=== PATIENT | female | born 1950 | race African-American/Black ===

== ENCOUNTER 2018-09-28 17:00 | Inpatient (IN) | payer BC ==
[~2018-09-28] VITALS: Ht 162.6 cm; Wt 76.2 kg
--- NOTE | 2018-09-28 17:12 | NUR ---
BIB DAUGHTER. AAOX4. NAD, BREATHING EVEN AND UNLABORED.
--- NOTE | 2018-09-28 17:15 | NUR ---
IV LINE OBTAINED ON R AC 18G. BLOOD DRAWN AND GIVEN TO NEEDLE SETTER AT BEDSIDE
--- NOTE | 2018-09-28 17:18 | NUR ---
CODE STROKE ACTIVATED
--- NOTE | 2018-09-28 17:19 | NUR ---
BEING WHEELD TO CT ON [facility]
[2018-09-28] MEDS ORDERED: IV NS 0.9% 250 ML IV ONE (17:21)
[2018-09-28] MEDS ORDERED: IOHEXOL-350 100 ML VIAL IV ONE (17:21)
[2018-09-28] MEDS ORDERED: CT SWABBABLE VALVE TRANS SET 1 EA INFUS.SET MC ONE (17:21)
[2018-09-28 17:26] LABS: BASOPHILS # (AUTO) 0.1 /CMM (0.0-0.2); EOSINOPHILS % (AUTO) 2.4 % (0.0-6.0); HEMATOCRIT 40 % (33-45); HEMOGLOBIN 13.6 g/dL (11.5-14.8); LYMPHOCYTES # (AUTO) 2.7 /CMM (0.8-4.8); LYMPHOCYTES % (AUTO) 35.1 % (20.0-44.0); MEAN CORPUSCULAR HGB CONC 34 g/dl (31.0-36.0); MEAN CORPUSCULAR VOLUME 80 fL (82-100); MONOCYTES # (AUTO) 0.8 /CMM (0.1-1.30); MONOCYTES % (AUTO) 10.5 % (2.0-12.0); NEUTROPHILS # (AUTO) 3.9 /CMM (1.8-8.9); PLATELET COUNT (AUTO) 160 /CMM (150-450); RED BLOOD CELL COUNT(AUTO) 4.98 MIL/uL (4.0-5.2); WHITE BLOOD COUNT (AUTO) 7.7 K/uL (4.3-11.0)
[2018-09-28 17:33] LABS: CALCIUM, SERUM 9.4 mg/dL (8.5-10.1); CARBON DIOXIDE 31 mmol/L (21-32); CHLORIDE 103 mmol/L (98-107); CREATININE 1.2 mg/dL (0.6-1.3); GLUCOSE 86 mg/dL (74-106); POTASSIUM 3.1 mmol/L (3.5-5.1); SODIUM SERUM 140 mmol/L (136-145); UREA NITROGEN, BLOOD 23 mg/dL (7-18)
--- NOTE | 2018-09-28 17:40 | NUR ---
PT BACK TO ROOM. PT ON TELEHEALTH CONFERENCE W/ NEUROLOGY
[2018-09-28] MEDS ORDERED: CLOPIDOGREL BISULFATE 75 MG TABLET ONE (18:18)
[2018-09-28 18:19] LABS: CHOLESTEROL 159 mg/dL (<200); HDL CHOLESTEROL 41 mg/dL (40-60); LDL 91 mg/dL (0-99); TRIGLYCERIDES 138 mg/dL (30-150)
[2018-09-28] MEDS ORDERED: LOVA10TA PO (18:23)
[2018-09-28] MEDS ORDERED: POTA8TAB8 PO (18:23)
[2018-09-28] MEDS ORDERED: CARV25TA2 PO (18:23)
[2018-09-28] MEDS ORDERED: BLOO-668 IN (18:23)
[2018-09-28] MEDS ORDERED: LOSA1TAB39 PO (18:23)
[2018-09-28] MEDS ORDERED: FURO40TA5 PO (18:23)
[2018-09-28] MEDS ORDERED: AMLO5TAB9 PO (18:23)
[2018-09-28] MEDS ORDERED: INSU100V7 SQ ×2 (18:23)
[2018-09-28] MEDS ORDERED: CLON0.1T PO (18:23)
[2018-09-28] MEDS ORDERED: PIPERACILLIN /TAZOBACTAM 3.375 G in IV D5W 50 ML IV ONE (18:30)
[2018-09-28] MEDS ORDERED: CLOPIDOGREL BISULFATE 75 MG TABLET PO ONE (18:30)
--- NOTE | 2018-09-28 18:39 | NUR ---
SWALOW EVAL PASSED. FLUIDS TOLERATED WELL. WELL PO MED. MADE AWARE
[2018-09-28] MEDS ORDERED: TEMAZEPAM 15 MG CAPSULE PO PRN (19:00)
[2018-09-28] MEDS ORDERED: CLONIDINE HCL 0.1 MG TABLET PO PRN ×2 (19:00→20:15)
[2018-09-28] MEDS ORDERED: POTASSIUM CHLORIDE 20 MEQ TAB.PRT.SR PO ONE ×2 (19:00→21:00)
[2018-09-28] MEDS ORDERED: ACETAMINOPHEN 325 MG TABLET PO PRN ×2 (19:00→20:15)
[2018-09-28] MEDS ORDERED: INSULIN REGULAR, HUMAN 100 UNIT/ML 3 ML VIAL SQ PRN (19:00)
[2018-09-28] MEDS ORDERED: DEXTROSE 50%-WATER 50 ML DISP.SYRIN IV PRN ×2 (19:00→20:15)
--- NOTE | 2018-09-28 19:11 | NUR ---
RECIEVED REPORT FROM OFFGOING SHIFT RIVER HERNANDEZ. PT STABLE CONDITION. NAD.
--- NOTE | 2018-09-28 19:14 | NUR ---
PT ENDORSED TO [facility] DUNN FOR VIK
[2018-09-28 19:22] LABS: C-REACTIVE PROTEIN 0.2 mg/dL (0.0-0.9); THYROID STIMULATING HORMONE 2.916 uIU/mL (0.358-3.74)
--- NOTE | 2018-09-28 19:50 | NUR ---
REPORT GIVEN TO VIANEY SINGH
[2018-09-28 20:00] VITALS: BP 167/67
--- NOTE | 2018-09-28 20:00 | NUR ---
RN VIANEY NOTE RECEIVED REPORT, ER GIVEN BY MONA HOLMAN, PT ADMITTED FOR CVA/ OSTEOMYELITIS, C/O LT CHEEK NUMBNESS, ABSCESS NOTED ON LT BACK WISDOM TEETH PER PT BY ER , AOX4 ON R/A DENIES ANY PAIN, SKIN INTACT, RAC#20G WELL SECURED AND PATENT, AMBULATORY, NO DEFICITS NOTE FOR BOTH UPPER EXT' AND BILAT' LE, ADMITTING ORDERS ENTERED BY YASMEEN, KEVIN DIET ACTIVE, NURSING SWALLOW EVAL DONE PASSED, YASMEEN AWARE, OK TO RESUME DIET, WILL CONT TO MONITOR PT FOR S/SX. Addendum: 09/28/18 at 2257 by ALEXSANDER AVALOS RN ADMITTING NOTE.
--- NOTE | 2018-09-28 20:05 | NUR ---
PT TRANSPORTED TO [facility] BED 106 WITH STABLE CONDITION, NAD, VIA ACLS PROTOCOL.
[2018-09-28] MEDS ORDERED: PIPERACILLIN /TAZOBACTAM 3.375 G in IV D5W 50 ML IV SCH ×4 (21:00)
[2018-09-28] MEDS ORDERED: BLOOD SUGAR DIAGNOSTIC 1 EACH STRIP IN SCH ×3 (22:00)
[2018-09-28] MEDS ORDERED: ATORVASTATIN 10 MG TABLET PO SCH (22:00)
[2018-09-28] MEDS: BLOOD SUGAR DIAGNOSTIC 1 EACH STRIP IN SCH (22:11)
[2018-09-28] MEDS: ATORVASTATIN 10 MG TABLET PO SCH (22:11)
[2018-09-29] VITALS: BP_SYST 135; BP_SYST 162; BP_DIAS 62; BP_DIAS 69
[2018-09-29] MEDS ORDERED: BLOOD SUGAR DIAGNOSTIC 1 EACH STRIP IN SCH ×2
[2018-09-29] MEDS: PIPERACILLIN /TAZOBACTAM 3.375 G in IV D5W 100 ML IV SCH ×4 (00:04→23:38)
[2018-09-29] MEDS: TEMAZEPAM 15 MG CAPSULE PO PRN (00:09)
[2018-09-29 04:00] VITALS: BP 131/63
--- NOTE | 2018-09-29 06:20 | NUR ---
RN VIANEY CLOSING NOTE ENDORSED TP AOX4, ON R/A, BLE AND BLE ASSESSED FOR DEFICITS, (-), NO FACIAL DROOP OR WEAKNESS NOTE, SPEECH CLEAR, SWALLOW EVAL NURSING ASSESMENT COMPLETED. WILL ENDORSE TO AM RN TO MONITOR FOR S/SX OF STROKE.
--- NOTE | 2018-09-29 07:15 | NUR ---
RN OPENING NOTES PATIENT IN BED AWAKE AND ALERT. NO COMPLAINS OF ANY PAIN NOR DISTRESS. ALERT AND ORIENTED X4. ON TELE MONITOR, SR. HAS A RIGHT AC #18 SALINE LOCKED. CVA PROTOCOL WAS DONE, ALL NEGATIVE. HAS A NEURO CONSULT PENDING. ON ROOM AIR, NO SOB NOTED. BED LOCKED AND IN LOWEST POSITION. CALL LIGHT WITHIN REACH. WILL CONTINUE TO MONITOR CLOSELY
[2018-09-29] MEDS: PANTOPRAZOLE 40 MG TABLET.DR PO SCH (07:30)
[2018-09-29] MEDS ORDERED: PANTOPRAZOLE 40 MG TABLET.DR PO SCH (07:30)
[2018-09-29] MEDS: BLOOD SUGAR DIAGNOSTIC 1 EACH STRIP IN SCH ×4 (07:38→22:05)
[2018-09-29 08:00] VITALS: BP 139/68
[2018-09-29] MEDS: FUROSEMIDE 40 MG TABLET PO SCH (08:06)
[2018-09-29] MEDS: POTASSIUM CHLORIDE 10 MEQ TABLET.SA PO SCH (08:06)
[2018-09-29] MEDS: CLOPIDOGREL BISULFATE 75 MG TABLET PO SCH (08:06)
[2018-09-29] MEDS: AMLODIPINE BESYLATE 5 MG TABLET PO SCH (08:06)
[2018-09-29] MEDS: CARVEDILOL 12.5 MG TABLET PO SCH ×2 (08:07→17:48)
[2018-09-29 09:00] VITALS: BP 139/68
[2018-09-29] MEDS ORDERED: CARVEDILOL 6.25 MG TABLET PO SCH (09:00)
[2018-09-29] MEDS ORDERED: AMLODIPINE BESYLATE 5 MG TABLET PO SCH (09:00)
[2018-09-29] MEDS ORDERED: CLOPIDOGREL BISULFATE 75 MG TABLET PO SCH (09:00)
[2018-09-29] MEDS ORDERED: LOSARTAN/HCTZ 50-12.5MG/ 1 EA TABLET PO SCH (09:00)
[2018-09-29] MEDS ORDERED: FUROSEMIDE 40 MG TABLET PO SCH (09:00)
[2018-09-29] MEDS ORDERED: POTASSIUM CHLORIDE 10 MEQ TABLET.SA PO SCH (09:00)
[2018-09-29] MEDS ORDERED: ASPIRIN EC 325 MG TABLET.DR PO SCH (09:00)
[2018-09-29] MEDS: LOSARTAN/HCTZ 50-12.5MG/ 1 EA TABLET PO SCH (09:21)
--- NOTE | 2018-09-29 11:30 | NUR ---
RN NOTES YASMEEN BEDOLLA DNP AT BEDSIDE. ASSESSED PATIENT AND TALKED TO FAMILY AT BEDSIDE.
[2018-09-29] MEDS: INSULIN REGULAR, HUMAN 100 UNIT/ML 3 ML VIAL SQ PRN ×3 (11:56→22:23)
[2018-09-29 12:33] LABS: BASOPHILS % (AUTO) 0.7 % (0.0-2.0); EOSINOPHILS % (AUTO) 2.3 % (0.0-6.0); HEMATOCRIT 38 % (33-45); HEMOGLOBIN 13.1 g/dL (11.5-14.8); LYMPHOCYTES # (AUTO) 1.8 /CMM (0.8-4.8); LYMPHOCYTES % (AUTO) 29.4 % (20.0-44.0); MEAN CORPUSCULAR HGB CONC 34 g/dl (31.0-36.0); MEAN CORPUSCULAR VOLUME 79 fL (82-100); MONOCYTES # (AUTO) 0.6 /CMM (0.1-1.30); MONOCYTES % (AUTO) 10.2 % (2.0-12.0); NEUTROPHILS # (AUTO) 3.4 /CMM (1.8-8.9); NEUTROPHILS % (AUTO) 57.4 % (43.0-81.0); PLATELET COUNT (AUTO) 149 /CMM (150-450); RED BLOOD CELL COUNT(AUTO) 4.83 MIL/uL (4.0-5.2)
--- NOTE | 2018-09-29 12:45 | NUR ---
RECEIVED REPORT FROM NEHA HOLMAN FOR VIK. A/OX4. NO ACUTE DISTRESS OR SOB NOTED. REPORTS 08/01 TOOTHACHE AND LEFT FACIAL WEAKNESS. SPEECH CLEAR, SMILE EVEN, OTHER SPATIAL SCIENTIST STRENGTH EQUAL ON BOTH SIDES. IV SITE R AC 18G C/D/I, SALINE LOCKED. BED LOCKED, LOW, SIDE RAILS UPX2, PATIENT ABLE TO MAKE NEEDS KNOWN. CALL LIGHT WITHIN REACH. WILL CONTINUE TO MONITOR
[2018-09-29] MEDS: methylPREDNISolone SOD SUCC 40 MG/ML VIAL IV SCH ×2 (13:17→17:48)
[2018-09-29 13:57] LABS: PHOSPHORUS 4.1 mg/dL (2.5-4.9)
[2018-09-29 16:00] VITALS: BP 118/67
--- NOTE | 2018-09-29 18:00 | NUR ---
MS RN CLOSING NO SIGNIFICANT CHANGES THROUGHOUT SHIFT. PATIENT STABLE. NO S/S STROKE. REPORT GIVEN TO NOC RN FOR VIK.
--- NOTE | 2018-09-29 19:36 | NUR ---
RN OPENING NOTES RECEIVED PATIENT AWAKE, RESTING COMFORTABLY IN BED. PATIENT IS A/O X4. NO SIGNS OF RESPIRATORY DISTRESS. DENIES SHORTNESS OF BREATH. PATIENT DENIES PAIN OR DISCOMFORT AT THIS TIME. IV SITE: RAC #18 IS SALINE LOCKED INTACT AND PATENT, WITH NO REDNESS.SAFETY PRECAUTIONS IMPLEMENTED. CALL LIGHT WITHIN REACH. WILL CONTINUE TO MONITOR PATIENT THROUGHOUT THE SHIFT.
[2018-09-29 20:00] VITALS: BP 135/62
[2018-09-29] MEDS: ATORVASTATIN 10 MG TABLET PO SCH (21:43)
--- NOTE | 2018-09-29 22:07 | NUR ---
RN NOTES CURRENT BLOOD SUGAR IS 499. THIS WAS THE SECOND TEST PERFORMED AFTER THE FIRST: WHICH WAS 500+. PATIENT STATED SHE ATE 2 CUPS OF JELLO AND AN ORANGE AT 2130. STAT LAB DRAW WAS ORDERED. WILL CONTINUE TO MONITOR PATIENT.
[2018-09-29] MEDS: INSULIN GLARGINE, 100 UNIT/ML CARTRIDGE SQ SCH (22:22)
[2018-09-29] MEDS ORDERED: *INSULIN REGULAR(HUMULIN R)HUM 100 UNIT/ML VIAL SQ PRN (23:30)
[2018-09-29] MEDS ORDERED: INSULIN REGULAR, HUMAN 100 UNIT/ML 3 ML VIAL SQ PRN ×2 (23:30)
[2018-09-29] MEDS ORDERED: DEXTROSE 50%-WATER 50 ML DISP.SYRIN IV PRN (23:30)
--- NOTE | 2018-09-29 23:31 | NUR ---
RN NOTES PATIENT'S LATEST BLOOD SUGAR WAS 458. IT WAS CHECKED 30 MINUTES AFTER ADMINISTRATION OF REGULAR INSULIN. NOTIFIED DR. MESA OF THE RESULTS. DR. MESA ORDERED A MODERATE SCALE OF MONITORING BLOOD SUGAR. DR. MESA ORDERED NOTHING ELSE AT THIS TIME. WILL CONTINUE TO MONITOR PATIENT.
--- NOTE | 2018-09-29 23:52 | NUR ---
RN NOTES DR. MESA DID NOT ORDER ADDITIONAL MEDICATION TO BE GIVEN AT THIS TIME.
[2018-09-30] VITALS: BP 126/74
--- NOTE | 2018-09-30 06:23 | NUR ---
RN CLOSING NOTES PATIENT IS RESTING IN BED COMFORTABLY, ORIENTED TO SELF. PATIENT IS A/O X 4. BREATHING EVEN AND UNLABORED, ON ROOM AIR. NO SIGNS OF RESPIRATORY DISTRESS. DENIES SHORTNESS OF BREATH. NO FACIAL DROOP OR WEAKNESS NOTED. SPEECH CLEAR. NO S/S OF STROKE. ALL NEEDS ATTENDED TO. SAFETY PRECAUTIONS IMPLEMENTED; CALL LIGHT WITHIN REACH, BED LOCKED, BED LOW, SIDE RAILS UP X2. CALL LIGHT WITHIN REACH. WILL ENDORSE TO AM SHIFT FOR CONTINUITY OF CARE.
[2018-09-30 06:35] LABS: CALCIUM, SERUM 8.5 mg/dL (8.5-10.1); CREATININE 1.7 mg/dL (0.6-1.3); POTASSIUM 3.4 mmol/L (3.5-5.1)
[2018-09-30] MEDS: PANTOPRAZOLE 40 MG TABLET.DR PO SCH (07:30)
[2018-09-30] MEDS ORDERED: BLOOD SUGAR DIAGNOSTIC 1 EACH STRIP VI SCH (07:30)
[2018-09-30 08:00] VITALS: BP 126/74
[2018-09-30] MEDS: PIPERACILLIN /TAZOBACTAM 3.375 G in IV D5W 100 ML IV SCH ×2 (08:00→16:26)
[2018-09-30] MEDS: methylPREDNISolone SOD SUCC 40 MG/ML VIAL IV SCH ×2 (09:16→16:26)
[2018-09-30] MEDS: CARVEDILOL 12.5 MG TABLET PO SCH ×2 (09:20→16:27)
[2018-09-30] MEDS: LOSARTAN/HCTZ 50-12.5MG/ 1 EA TABLET PO SCH (09:20)
[2018-09-30] MEDS: POTASSIUM CHLORIDE 10 MEQ TABLET.SA PO SCH (09:20)
[2018-09-30] MEDS: FUROSEMIDE 40 MG TABLET PO SCH (09:20)
[2018-09-30] MEDS: AMLODIPINE BESYLATE 5 MG TABLET PO SCH (09:21)
[2018-09-30] MEDS: CLOPIDOGREL BISULFATE 75 MG TABLET PO SCH (09:21)
[2018-09-30] MEDS ORDERED: DEXTROSE 50%-WATER 50 ML DISP.SYRIN IV PRN (10:30)
[2018-09-30] MEDS: BLOOD SUGAR DIAGNOSTIC 1 EACH STRIP VI SCH ×3 (12:00→22:23)
[2018-09-30 16:00] VITALS: BP 126/74
[2018-09-30] MEDS: *INSULIN REGULAR(HUMULIN R)HUM 100 UNIT/ML VIAL SQ PRN ×2 (17:36→22:30)
--- NOTE | 2018-09-30 19:45 | NUR ---
RN NOTES RECEIVED PATIENT AWAKE ALERT ORIENTED X 4, AMBULATORY NO SIGNS OF ACUTE RESPIRATORY DISTRESS NOTED, IV ACCESS INTACT AND PATENT, DENIES PAIN AT THIS TIME, SAFETY MEASURES IN PLACE, CALL LIGHT WITHIN EASY REACH NO SIGNS OF HYPO/HYPERGLYCEMIA NOTED, ALL NEEDS ATTENDED, WILL CONTINUE TO MONITOR ACCORDINGLY.
[2018-09-30 20:00] VITALS: BP 144/62
[2018-09-30] MEDS: ATORVASTATIN 10 MG TABLET PO SCH (21:48)
[2018-09-30] MEDS: INSULIN GLARGINE, 100 UNIT/ML CARTRIDGE SQ SCH (22:28)
[2018-09-30] MEDS: TEMAZEPAM 15 MG CAPSULE PO PRN (22:35)
[2018-10-01] VITALS (7 sets, daily range): BP systolic 141–157; BP diastolic 60–75
[2018-10-01] MEDS: PIPERACILLIN /TAZOBACTAM 3.375 G in IV D5W 100 ML IV SCH ×3 (00:26→16:02)
[2018-10-01 06:35] LABS: BASOPHILS % (AUTO) 0.2 % (0.0-2.0); HEMATOCRIT 39 % (33-45); HEMOGLOBIN 13.1 g/dL (11.5-14.8); LYMPHOCYTES # (AUTO) 1.1 /CMM (0.8-4.8); LYMPHOCYTES % (AUTO) 10.1 % (20.0-44.0); MEAN CORPUSCULAR HGB CONC 34 g/dl (31.0-36.0); MEAN CORPUSCULAR VOLUME 80 fL (82-100); MONOCYTES # (AUTO) 0.5 /CMM (0.1-1.30); MONOCYTES % (AUTO) 4.2 % (2.0-12.0); NEUTROPHILS # (AUTO) 9.5 /CMM (1.8-8.9); NEUTROPHILS % (AUTO) 85.5 % (43.0-81.0); PLATELET COUNT (AUTO) 155 /CMM (150-450); WHITE BLOOD COUNT (AUTO) 11.1 K/uL (4.3-11.0)
[2018-10-01] MEDS: INSULIN REGULAR, HUMAN 100 UNIT/ML 3 ML VIAL SQ PRN ×4 (06:41→17:42)
--- NOTE | 2018-10-01 06:48 | NUR ---
RN NOTES ALL NEEDS ATTENDED AND MET, KEPT COMFORTABLE, ABLE TO REST AND SLEEP WITH LONG INTERVALS, SAFETY MEASURES IN PLACE, BED IN LOW LOCKED POSITION, CALL LIGHT WITHIN EASY REACH, WILL ENDORSE TO THE AM NURSE FOR CONTINUITY OF CARE.
[2018-10-01 06:49] LABS: ALBUMIN 3.4 g/dL (3.4-5.0); BILIRUBIN,TOTAL 0.5 mg/dL (0.2-1.0); CREATININE 1.4 mg/dL (0.6-1.3); MAGNESIUM 2.3 mg/dL (1.8-2.4); POTASSIUM 4.1 mmol/L (3.5-5.1); TOTAL PROTEIN, SERUM 8.1 g/dL (6.4-8.2)
--- NOTE | 2018-10-01 07:15 | NUR ---
RN OPENING NOTES PATIENT IN BED AWAKE AND ALERT, ASKED ME TO DISCONNECT HER IV SO SHE CAN AMBULATE TO THE RESTROOM. COMPLAINS NO PAIN, NO SOB. HAS A RIGHT AC #18 SALINE LOCKED. AND A RIGHT UPPER ARM. DC PLANNING FOR TODAY PER MD'S NOTES. BED ON LOWEST POSITION. CALL LIGHT WITHIN REACH. WILL CONTINUE TO MONITOR
[2018-10-01] MEDS: PANTOPRAZOLE 40 MG TABLET.DR PO SCH (08:09)
[2018-10-01] MEDS: BLOOD SUGAR DIAGNOSTIC 1 EACH STRIP VI SCH ×3 (08:09→17:37)
[2018-10-01] MEDS: methylPREDNISolone SOD SUCC 40 MG/ML VIAL IV SCH (08:09)
[2018-10-01] MEDS: CLOPIDOGREL BISULFATE 75 MG TABLET PO SCH (08:10)
[2018-10-01] MEDS: POTASSIUM CHLORIDE 10 MEQ TABLET.SA PO SCH (08:10)
[2018-10-01] MEDS: FUROSEMIDE 40 MG TABLET PO SCH (08:10)
[2018-10-01] MEDS: CARVEDILOL 12.5 MG TABLET PO SCH ×2 (08:27→17:18)
[2018-10-01] MEDS: AMLODIPINE BESYLATE 5 MG TABLET PO SCH (08:27)
[2018-10-01] MEDS ORDERED: methylPREDNISolone SOD SUCC 40 MG/ML VIAL IV SCH (09:00)
--- NOTE | 2018-10-01 16:47 | NUR ---
RN NOTES PATIENT GETTING DC TONIGHT AFTER ZOSYN DOSE. WILL KEEP ELSY PICC LINE FOR HOME HEALTH NURSE. WILL DC RIGHT FOREARM IV. PATIENT AWARE. WILL PRINT EXIT CARE AND DO EDUCATION
--- NOTE | 2018-10-01 18:38 | NUR ---
RN CLOSING NOTES PATIENT IS GETTING DC TONIGHT WITH HOME HEALTH. EXIT CARE DONE, EDUCATED PATIENT REGARDING STROKE. VS STABLE THROUGHOUT. WILL ENDORSE TO NOC SHIFT RN FOR DISCHARGE INSTRUCTIONS
--- NOTE | 2018-10-01 21:10 | NUR ---
RN NOTE PATIENT WAS DISCHARGED TODAY, VITAL SIGNS STABLE, ROOM AIR, ALERT/ORIENTED X4, DAUGHTER IS BY BEDSIDE, AMBULATE, STEADY GAIT, RIGHT UPPER PICC LINE, NO S/S OF INFECTION/INFILTRATION NOTED, WAS TRANSFERRED VIA WHEELCHAIR TO THE CAR FOR SAFETY, ALL SAFETY MEASURES TAKEN, PATIENT IS STABLE
[2018-10-02] MEDS ORDERED: methylPREDNISolone SOD SUCC 40 MG/ML VIAL IV SCH (09:00)
[2018-10-02 10:16] LABS: *ANTITHROMBIN III AG 101 % (72-124); *DILUTE PROTHROMBIN TIME (dPT) 45.5 sec (0.0-55.0); *INTERPRETATION Comment: (.); *PTT-LA 30.8 sec (0.0-51.9); *THROMBIN TIME 20.1 sec (0.0-23.0); *dPT CONFIRM RATIO 1.06 Ratio (0.00-1.40)
[2018-10-02 11:09] LABS: *CARD ANTI-CARDIOLIPIN AB IgG <9 GPL U/mL (0-14); *CARD ANTI-CARDIOLIPIN AB IgM <9 MPL U/mL (0-12)
== END 2018-10-01 21:10 | disposition home health service (06) | DRG 157 ==
LOC: ER 17:00 → TELE-TD 20:27 → MEDSG1 09-29 10:04
PROVIDERS: ADMIT Nurse Practitioner Acute Care; ATTEND Nurse Practitioner Acute Care
PROC: 02HV33Z Insertion of Infusion Device into Superior Vena Cava, Percutaneous Approach (ICD-10-PCS; principal; 2018-09-30)
PROC: B548ZZA Ultrasonography of Superior Vena Cava, Guidance (ICD-10-PCS; 2018-09-30)
DX: M27.2 Inflammatory conditions of jaws (principal); N17.0 Acute kidney failure with tubular necrosis; I50.32 Chronic diastolic (congestive) heart failure; K04.7 Periapical abscess without sinus; I25.2 Old myocardial infarction; I25.10 Atherosclerotic heart disease of native coronary artery without angina pectoris; E87.6 Hypokalemia; E78.5 Hyperlipidemia, unspecified; Z79.4 Long term (current) use of insulin; E10.9 Type 1 diabetes mellitus without complications; K02.9 Dental caries, unspecified; K02.7 Dental root caries; E66.9 Obesity, unspecified; Z68.28 Body mass index [BMI] 28.0-28.9, adult; I05.8 Other rheumatic mitral valve diseases; R93.1 Abnormal findings on diagnostic imaging of heart and coronary circulation; I11.0 Hypertensive heart disease with heart failure
CPT/HCPCS: 36415; 70450-TC; 70496-TC; 70498-TC; 71045-TC; 80048-TC; 80053-TC; 80061-TC; 82550-TC; 82947-TC; 82962-TC; 83735-TC; 84100-TC; 84443-TC; 84484-TC; 85025-TC; 85300; 85301; 85613; 85652-TC; 85670; 85705; 85730-TC; 85732; 86140-TC; 86147; 87040-TC; 87081-TC; 92507-TC; 92526; 92611-TC; 93307-TC; 97116-TC; 97530-TC; 97535-TC; C1751; G0378; J1815; J2543; J2920; J7030; J7050; J7060; Q9967